=== PATIENT | female | born 1925 | race Caucasian/White ===

== ENCOUNTER → 2016-08-19 | Outpatient (CLI) | payer BC ==
--- NOTE | 2016-08-19 09:36 | DIAGNOSTIC IMAGING REPORT ---
LEFT KNEE 4 OR MORE CLINICAL HISTORY: LEFT KNEE PAIN pain COMPARISON: None DISCUSSION: Considerable degenerative change all major joint compartments. Degenerative chondrocalcinosis. Reactive osteophytic changes throughout. Moderate osteophytic reaction from the superior and inferior aspects of the patella. There is no evidence for soft tissue swelling. IMPRESSION: Considerable degenerative change all major joint compartments. Electronically signed by: Merlin Valdovinos M.D. 08/19/2016 9:34 AM Dictated Date/Time: 08/19/2016 9:34 AM
== END | disposition home or self-care (01) ==
LOC: C.RDSM 12:28
PROVIDERS: ATTEND Internal Medicine
DX: M25.562 Pain in left knee (principal)